=== PATIENT | female | born 1955 | race Caucasian/White ===

== ENCOUNTER → 2016-06-20 | Outpatient (CLI) | payer BC ==
--- NOTE | 2016-06-20 14:20 | MM ---
Reason for exam: additional evaluation requested from prior study. Last mammogram was performed 1 year ago. History: Patient is postmenopausal. Took hormonal contraceptives for 10 years. Physical Findings: Nurse did not find any significant physical abnormalities on exam. MG Diagnostic Mammo w CAD YOEL Bilateral CC and MLO view(s) were taken. Prior study comparison: June 08, 2015, bilateral MG screening mammo w CAD. May 15, 2014, mammogram, performed at . May 05, 2013, mammogram, performed at . There are scattered fibroglandular densities. Finding: There are typically benign calcifications in both breasts. There is no discrete abnormality. These results were verbally communicated with the patient and result sheet given to the patient on 06/20/16. ASSESSMENT: Benign, BI-RAD 2 RECOMMENDATION: Routine screening mammogram of both breasts in 1 year.
== END | disposition home or self-care (01) ==
LOC: RADMAMWWP 12:46
PROVIDERS: ATTEND Family Medicine
DX: N64.59 Other signs and symptoms in breast (principal)

== ENCOUNTER → 2017-10-21 | Outpatient (CLI) | payer BC ==
--- NOTE | 2017-10-22 08:10 | MM ---
Reason for exam: screening (asymptomatic). Last mammogram was performed 1 year and 4 months ago. History: Patient is postmenopausal. Took hormonal contraceptives for 10 years. Physical Findings: A clinical breast exam by your physician is recommended on an annual basis and results should be correlated with mammographic findings. MG Screening Mammo w CAD Bilateral CC and MLO view(s) were taken. Prior study comparison: June 20, 2016, bilateral MG diagnostic mammo w CAD YOEL. June 08, 2015, bilateral MG screening mammo w CAD. The breast tissue is heterogeneously dense. This may lower the sensitivity of mammography. No suspicious calcifications are seen. New nodule upper outer left breast 6.2cm from nipple. This finding is changed when compared with previous exams. ASSESSMENT: Incomplete: need additional imaging evaluation, BI-RAD 0 RECOMMENDATION: Special view mammogram of the left breast. If lesion persists on supplemental views, image directed ultrasound is recommended. [facility] will attempt to contact patient to return for supplemental views and ultrasound if indicated.
== END | disposition home or self-care (01) ==
LOC: RADMAMWWP 07:43
PROVIDERS: ATTEND Family Medicine
DX: Z12.31 Encounter for screening mammogram for malignant neoplasm of breast (principal)
CPT/HCPCS: 77067

== ENCOUNTER → 2017-10-29 | Outpatient (CLI) | payer BC ==
--- NOTE | 2017-10-29 11:40 | MM ---
Reason for exam: additional evaluation requested from abnormal screening. Last mammogram was performed less than 1 month ago. History: Patient is postmenopausal. Took hormonal contraceptives for 10 years. Physical Findings: Nurse did not find any significant physical abnormalities on exam. MG Work Up Mamm w CAD LT Spot compression CC, spot compression MLO, and LM view(s) were taken of the left breast. Prior study comparison: October 21, 2017, bilateral MG screening mammo w CAD. June 20, 2016, bilateral MG diagnostic mammo w CAD YOEL. There is no discrete abnormality. These results were verbally communicated with the patient and result sheet given to the patient on 10/29/17. ASSESSMENT: Probably benign, BI-RAD 3 RECOMMENDATION: Follow-up diagnostic mammogram of the left breast in 6 months.
== END | disposition home or self-care (01) ==
LOC: RADMAMWWP 10:11
PROVIDERS: ATTEND Family Medicine
DX: R92.8 Other abnormal and inconclusive findings on diagnostic imaging of breast (principal)
CPT/HCPCS: 77065

== ENCOUNTER 2018-02-18 07:34 | Day surgery (SDC) | payer BC ==
[2018-02-11 11:51] VITALS: BMI 29.9
[~2018-02-18 07:34] MED LIST: DEXAMETHASONE SOD PHOSPHATE 10 MG/ML 1 ML VIAL IV ONE; HYDROmorphone 0.5 MG/0.5 ML SYRINGE IVP PRN; LACTATED RINGERS 1,000 ML IV SCH; LIDOCAINE 1% 20 ML VIAL (10MG/ML) FOR IV START INTRADERMA PRN; ONDANSETRON 4 MG/2 ML VIAL IVP ONE; SCOPOLAMINE 1.5MG/72HR PATCH TRANSDERM ONE
[2018-02-18 08:04] VITALS: RESP 16; TEMP 98.2
[2018-02-18] MEDS ORDERED: LIDOCAINE 1% INJ 10MG/ML (20 ML MDV) ONE (09:32)
[2018-02-18] MEDS ORDERED: PROPOFOL 10 MG/ML 20 ML VIAL IV ONE (09:32)
--- NOTE | 2018-02-18 10:01 | P.PCN ---
Date of Procedure: 02/18/18 Procedure(s) Performed: BRIEF HISTORY: Patient is a 62-year-old, pleasant, white female, scheduled for an upper endoscopy as a part of evaluation of long-standing history of GERD of several years duration. She has been on Prilosec 20 mg twice daily and still remains symptomatic. She is hence scheduled for an upper endoscopy to rule out complicated reflux disease. PROCEDURE PERFORMED: Esophagogastroduodenoscopy with biopsy. PREOPERATIVE DIAGNOSIS: Long-standing history of GERD. IV sedation per anesthesia. PROCEDURE: After informed consent was obtained, the patient was brought into the endoscopy unit. IV sedation was administered by Anesthesia under continuous monitoring. Initially the Olympus GIF-140 video endoscope was inserted into the mouth. Esophagus intubated without any difficulty. It was gradually advanced into the stomach and duodenum and carefully examined. The bulb and the second part of the duodenum appeared normal. The scope at this time was withdrawn to the stomach, adequately insufflated with air, and upon careful examination, mucosa of the antrum, had mild gastritis and biopsies were done from this area. The body, cardia and the fundus appeared normal. The scope was then withdrawn into the esophagus. The GE junction was located at 39 cm from the incisors. Small hiatal hernia noted. The esophagus appeared normal. There were no erosions or ulcerations seen and the patient tolerated the procedure well. IMPRESSION: 1. Antral gastritis. 2. Small hiatal hernia but no evidence of esophagitis or Acuna's esophagus. RECOMMENDATIONS: The findings of this examination were discussed with the patient as well as a family. She was advised to follow with the biopsy results. She will continue with omeprazole 20 mg twice a day and follow antireflux measures.
[2018-02-18 10:18] VITALS: BP 136/83; PULSE 67
== END 2018-02-18 10:36 | disposition home or self-care (01) ==
LOC: ORWHC2ENDO 07:34
PROVIDERS: ATTEND Internal Medicine Gastroenterology
DX: K29.50 Unspecified chronic gastritis without bleeding (principal); K44.9 Diaphragmatic hernia without obstruction or gangrene; K21.9 Gastro-esophageal reflux disease without esophagitis; Z87.891 Personal history of nicotine dependence; Z79.899 Other long term (current) drug therapy
CPT/HCPCS: 88305; 43239; J2001; J2704

== ENCOUNTER → 2018-04-29 | Outpatient (CLI) | payer BC ==
--- NOTE | 2018-04-29 10:26 | MM ---
Reason for exam: follow-up at short interval from prior study. Last mammogram was performed 6 months ago. History: Patient is postmenopausal. Took hormonal contraceptives for 10 years. Physical Findings: Nurse did not find any significant physical abnormalities on exam. MG Diagnostic Mammo LT w CAD CC, MLO, and ML view(s) were taken of the left breast. Prior study comparison: October 29, 2017, left breast MG work up mamm w CAD LT. October 21, 2017, bilateral MG screening mammo w CAD. The breast tissue is heterogeneously dense. This may lower the sensitivity of mammography. Lower outer quadrant focal asymmetry is unchanged mammographically. These results were verbally communicated with the patient and result sheet given to the patient on 04/29/18. ASSESSMENT: Probably benign, BI-RAD 3 RECOMMENDATION: Follow-up diagnostic mammogram of both breasts in 6 months.
== END | disposition home or self-care (01) ==
LOC: RADMAMWWP 09:34
PROVIDERS: ATTEND Family Medicine
DX: R92.8 Other abnormal and inconclusive findings on diagnostic imaging of breast (principal)
CPT/HCPCS: 77065

== ENCOUNTER → 2018-08-04 | Outpatient (CLI) | payer BC ==
--- NOTE | 2018-08-04 12:35 | US ---
EXAMINATION TYPE: US thyroid st tissue head/neck DATE OF EXAM: 08/04/2018 COMPARISON: NONE CLINICAL HISTORY: R221 Swelling mass/lump neck. Edema/lump mid neck within area of thyroid GLAND SIZE: Right Lobe: 5.4 x 1.8 x 2.1 cm Overall Parenchyma: heterogenous Left Lobe: 5.7 x 2.5 x 2.9 cm Overall Parenchyma: heterogeneous Isthmus Thickness: 0.4 cm NODULES RIGHT: # of nodules measured on right: 0 LEFT: # of nodules measured on left: 1 1. 4.4 X 2.5 x 2.8 cm solid mixed nodule at the mid/lower pole with well-defined margins. This nod ule is wider than tall and shows intranodular vascularity. Prior size: no prior ISTHMUS: # of nodules measured in the isthmus: 0 Bilateral neck scanned, no evidence of lymphadenopathy. IMPRESSION: Solitary 4.4 cm suspicious left thyroid nodule meeting criteria for fine-needle aspiration. Therefore fine-needle aspiration is recommended. Overall the thyroid gland size is mildly enlarged.
== END | disposition home or self-care (01) ==
LOC: RADUSWWP 09:35
PROVIDERS: ATTEND Family Medicine
DX: E04.1 Nontoxic single thyroid nodule (principal); E04.9 Nontoxic goiter, unspecified
CPT/HCPCS: 76536

== ENCOUNTER 2018-09-10 09:23 | Day surgery (SDC) | payer BC ==
[2018-09-10 09:49] VITALS: RESP 16; TEMP 98
[2018-09-10] MEDS ORDERED: ALPRAZolam 0.5 MG TAB PO STA (09:54)
[2018-09-10 11:03] VITALS: BP 143/73; PULSE 68
--- NOTE | 2018-09-10 11:07 | US ---
ULTRASOUND GUIDED FNA THYROID BIOPSY: CLINICAL HISTORY: Left thyroid nodule FINDINGS: The procedure was explained to the patient. The risks, complications, benefits and alternatives were discussed and any questions were answered. Informed consent was obtained. Patient was placed supin e on the ultrasound table and prepped and draped in the usual sterile fashion. Utilizing a 25 gauge needle, five passes were made into the requested left thyroid nodule. Patient was stable throughout the procedure. Pathology is pending. All elements of maximal barrier technique were utilized. IMPRESSION: 1. Successful ultrasound guided FNA thyroid biopsy.
== END 2018-09-10 10:55 | disposition home or self-care (01) ==
LOC: RADPROMAIN 09:23
PROVIDERS: ATTEND Family Medicine
DX: E04.1 Nontoxic single thyroid nodule (principal)
CPT/HCPCS: 10005; 88173; 88305

== ENCOUNTER → 2018-10-08 | Outpatient (CLI) | payer BC ==
--- NOTE | 2018-10-08 11:54 | US ---
EXAMINATION TYPE: US kidneys/renal and bladder DATE OF EXAM: 10/08/2018 COMPARISON: NONE CLINICAL HISTORY: N13.30 HYDRONEPHROSIS. EXAM MEASUREMENTS: Right Kidney: 9.0 x 4.4 x 4.7 cm Left Kidney: 9.7 x 3.7 x 4.8 cm Patient of large body habitus, technically difficult and limited study. Right Kidney: Mild to moderate hydronephrosis. Left Kidney: No hydronephrosis or obvious masses seen, inferior pole somewhat obscured by bowel gas Bladder: wnl Bilateral Jets seen: Yes There is no evidence for hydronephrosis on the left. No nephrolithiasis is seen. No masses are iden tified. The urinary bladder is anechoic. Bilateral ureteral jets are seen. IMPRESSION: Mild to moderate hydronephrosis is seen on the left. CT could be performed to evaluate for distal obs truction.
== END | disposition home or self-care (01) ==
LOC: RADUSWWP 10:46
PROVIDERS: ATTEND Urology
DX: N13.30 Unspecified hydronephrosis (principal)
CPT/HCPCS: 76770

== ENCOUNTER → 2018-11-04 | Outpatient (CLI) | payer BC ==
--- NOTE | 2018-11-04 19:06 | CT ---
EXAMINATION TYPE: CT abdomen pelvis wo/w con DATE OF EXAM: 11/04/2018 HISTORY: Hydronephrosis. Abnormal ultrasound. CT DLP: 1799.8mGycm Automated Exposure Control for Dose Reduction was Utilized. CONTRAST: CT scan of the abdomen and pelvis is performed with oral and without and with IV Contrast, patient in jected with 100 mL of Isovue M300. COMPARISON: Renal ultrasound October 08, 2018 FINDINGS: LUNG BASES: No significant abnormality is appreciated. LIVER/GB: There is simple appearing 1.6 cm thin-walled cyst in the left hepatic lobe. PANCREAS: No significant abnormality is seen. SPLEEN: No significant abnormality is seen. ADRENALS: No significant abnormality is seen. KIDNEYS: Noncontrast images show no renal calculi bilaterally. Post contrast images show symmetric co rtical medullary uptake and excretion from both kidneys. There is moderate to severe right-sided hydr onephrosis which correlates with ultrasound. There is abrupt transition at UPJ to nondilated ureter. 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 Congenital etiology not excluded. Correlation with old outside CT or ultrasound would be beneficial. No intraluminal calculus in the bladder. BOWEL: For oral contrast reaches level of the distal transverse colon. No suspicious small or large b owel dilatation. Rare diverticula in the colon. No CT evidence for acute diverticulitis. A short segm ent of small bowel in the left mid abdomen shows persistent poor opacification and/or abnormal wall t hickening, focal enteritis at this level cannot be excluded. UTERUS/ADNEXA: Anteverted uterus. LYMPH NODES: No greater than 1cm abdominal or pelvic lymph nodes are appreciated. OSSEOUS STRUCTURES: Calcified disc L1-L2 level. Mild narrowing and spurring both hip joints. OTHER: No significant additional abnormality is seen. IMPRESSION: Moderate to severe right-sided hydronephrosis without hydroureter consistent with UPJ str icture or stenosis. Note is made that there is no delayed excretion from the right kidney (i.e. clayton l function).
== END | disposition home or self-care (01) ==
LOC: RADCTMAIN 15:48
PROVIDERS: ATTEND Urology
DX: N13.30 Unspecified hydronephrosis (principal)
CPT/HCPCS: 74178; Q9967

== ENCOUNTER → 2018-11-11 | Outpatient (CLI) | payer BC ==
--- NOTE | 2018-11-11 10:50 | CT ---
EXAMINATION TYPE: CT soft tissue neck w con DATE OF EXAM: 11/11/2018 COMPARISON: Correlation ultrasound 08/04/2018 (mentioned a 4.4 x 2.5 x 2.8 cm solid nodule at the mid to lower pole of the left lobe). HISTORY: 63-year-old female with left thyroid mass, difficulty swallowing TECHNIQUE: Contiguous axial scanning of the soft tissues of the neck performed with IV Contrast, jhon ent injected with 100 mL of Isovue 300. Coronal/sagittal reconstructions performed. CT DLP: 710 mGycm Automated exposure control for dose reduction was used. FINDINGS: Visualized intracranial structures, orbits and globes, paranasal sinuses, and mastoid air cells appea r clear. Nasopharynx appears clear. Punctate calcifications left palatine tonsil suggest sequela of prior infection. Oropharynx otherwise clear with mild hypertrophy of the bilateral palatine tonsils. Epiglottis and prevertebral soft tissues within normal limits. Glottic and subglottic structures as well as the tracheal column and visualized upper lungs are clear . Large, heterogeneously enhancing nodule within the left lobe of thyroid gland measures 4.0 x 2.5 x 2. 1 cm. This is very similar to slightly smaller as compared to measurements obtained on patient 019 ultrasound. Atrophic submandibular glands. Parotid glands are satisfactory, mildly atrophic. Nonspecific 3 mm round calcification along the midline floor of the mouth just above the level of the mylohyoid. No cervical lymphadenopathy. Scattered nonenlarged lymph nodes are present on both sides of the neck. Mild spondylotic change cervical spine. IMPRESSION: 1. KNOWN DOMINANT NODULE WITHIN THE LEFT LOBE OF THE THYROID GLAND CURRENTLY MEASURING 4.0 X 2.5 X 2. 1 CM (VERSUS MEASUREMENTS ON PRIOR ULTRASOUND OF 08/04/2018, 4.4 X 2.8 X 2.5 CM). 2. THIS DOES NOT HAVE ANY SIGNIFICANT MASS EFFECT ONTO THE TRACHEA OR CERVICAL ESOPHAGUS. 3. MILD BILATERAL PALATINE TONSILLAR HYPERTROPHY. 4. ATROPHIC SUBMANDIBULAR GLANDS. 5. A SMALL 3 MM ROUND CALCIFICATION ALONG THE FLOOR OF THE MOUTH JUST ABOVE THE LEVEL OF THE MYLOHYOI D IS NONSPECIFIC AND IS NOT IN THE EXPECTED LOCATION OF THE SUBMANDIBULAR DUCT OR SUBLINGUAL GLANDS.
== END ==
LOC: RADCTMAIN 08:34
PROVIDERS: ATTEND Otolaryngology
DX: E04.1 Nontoxic single thyroid nodule (principal); I89.8 Other specified noninfective disorders of lymphatic vessels and lymph nodes; R93.89 Abnormal findings on diagnostic imaging of other specified body structures
CPT/HCPCS: 70491; Q9967

== ENCOUNTER → 2018-12-16 | Outpatient (CLI) | payer BC ==
--- NOTE | 2018-12-16 11:23 | MM ---
Reason for exam: follow-up at short interval from prior study. Last mammogram was performed 8 months ago. History: Patient is postmenopausal. Took hormonal contraceptives for 10 years. Physical Findings: Nurse did not find any significant physical abnormalities on exam. MG Diagnostic Mammo w CAD YOEL Bilateral CC and MLO view(s) were taken. Prior study comparison: April 29, 2018, left breast MG diagnostic mammo LT w CAD. October 29, 2017, left breast MG work up mamm w CAD LT. The breast tissue is heterogeneously dense. This may lower the sensitivity of mammography. Small nodular density unchanged since 2014. No significant new findings when compared with previous films. These results were verbally communicated with the patient and result sheet given to the patient on 12/16/18. ASSESSMENT: Benign, BI-RAD 2 RECOMMENDATION: Routine screening mammogram of both breasts in 1 year.
== END | disposition home or self-care (01) ==
LOC: RADMAMWWP 10:48
PROVIDERS: ATTEND Family Medicine
DX: R92.8 Other abnormal and inconclusive findings on diagnostic imaging of breast (principal)
CPT/HCPCS: 77066

== ENCOUNTER 2019-02-03 08:26 | Observation (INO) | payer BC ==
[2019-01-31 13:43] VITALS: BMI 31.6
[~2019-02-03 08:26] MED LIST changes: +HEPARIN SODIUM,PORCINE 5,000 UNIT/ML 1 ML VIAL SQ ONE; -LACTATED RINGERS 1,000 ML IV SCH; -LIDOCAINE 1% 20 ML VIAL (10MG/ML) FOR IV START INTRADERMA PRN; +MIDAZOLAM 2 MG/2 ML VIAL IV PRN; +Pre Op ABX Message 1 EACH MISC MISCELLANE ONE
[2019-02-03] MEDS: LACTATED RINGERS 1,000 ML IV SCH ×2 (09:02→12:09)
[2019-02-03] MEDS ORDERED: LIDOCAINE 1% 20 ML VIAL (10MG/ML) FOR IV START INTRADERMA ONE (09:03)
--- NOTE | 2019-02-03 09:35 | P.GSHP ---
History of Present Illness H&P Date: 02/03/19 Chief Complaint: Left thyroid nodule This a 63-year-old female who presents today for left thyroidectomy. Patient has an enlarging left thyroid nodule measuring approximately 4 cm diameter. Previous nodule biopsy which shows evidence of follicular nodule. Patient aware the risks of surgery including parathyroid gland injury and recurrent laryngeal nerve injury and vocal hoarseness and vocal cord paralysis Past Medical History Past Medical History: GERD/Reflux, Hyperlipidemia Additional Past Medical History / Comment(s): Thyroid nodule. History of Any Multi-Drug Resistant Organisms: None Reported Past Surgical History: Section, Orthopedic Surgery Additional Past Surgical History / Comment(s): RIGHT KNEE SCOPE X2, EGD, COLONOSCOPY, bilateral cataract removal. Past Anesthesia/Blood Transfusion Reactions: Motion Sickness Past Psychological History: No Psychological Hx Reported Smoking Status: Former smoker Past Alcohol Use History: None Reported Additional Past Alcohol Use History / Comment(s): SMOKED 20 YEARS, 1 PPD, QUIT 1997. Past Drug Use History: None Reported - Past Family History Father Family Medical History: Cancer Additional Family Medical History / Comment(s): STOMACH CA. Mother Family Medical History: Cancer Additional Family Medical History / Comment(s): SKIN CA. Sister(s) Family Medical History: Cancer Additional Family Medical History / Comment(s): ENDOMETRIAL CA. Medications and Allergies Home Medications Medication Instructions Recorded Confirmed Type Atorvastatin [Lipitor] 40 mg PO DAILY 02/11/18 02/03/19 History Cyanocobalamin (Vitamin B-12) 1,000 mcg PO DAILY 02/11/18 02/03/19 History [Vitamin B-12] Psyllium Husk [Metamucil] 0.4 gm PO DAILY 02/11/18 02/03/19 History Esomeprazole Magnesium [NexIUM] 40 mg PO BID 01/31/19 02/03/19 History Allergies Allergy/AdvReac Type Severity Reaction Status Date / Time NSAIDS (Non-Steroidal AdvReac Nausea & Verified 01/31/19 13:47 Anti-Inflamma Vomiting Surgical - Exam Vital Signs Temp Pulse Resp BP Pulse Ox 96.2 F L 75 16 159/79 98 02/03/19 08:46 02/03/19 08:46 02/03/19 08:46 02/03/19 08:46 02/03/19 08:46 - General well developed, well nourished, no distress - Eyes PERRL - ENT normal pinna - Neck Enlarged left thyroid gland no masses - Respiratory normal expansion - Cardiovascular Rhythm: regular - Abdomen Abdomen: soft, non tender Results - Labs Diabetes panel 02/03/19 Range/Units 09:05 Calcium 9.0 (8.4-10.2) mg/dL Calcium panel 02/03/19 Range/Units 09:05 Calcium 9.0 (8.4-10.2) mg/dL Pituitary panel 02/03/19 Range/Units 09:05 Calcium 9.0 (8.4-10.2) mg/dL Adrenal panel 02/03/19 Range/Units 09:05 Calcium 9.0 (8.4-10.2) mg/dL Assessment and Plan Assessment: Left thyroid nodule. We'll perform left thyroidectomy
[2019-02-03] MEDS ORDERED: MIDAZOLAM 2 MG/2 ML VIAL ONE (09:53)
[2019-02-03] MEDS ORDERED: fentaNYL (PF) 50 MCG/ML 2 ML AMP ONE (09:53)
[2019-02-03] MEDS ORDERED: SUCCINYLCHOLINE CHLORIDE 100 MG/5 ML SYR IV ONE (09:53)
[2019-02-03] MEDS ORDERED: PROPOFOL 10 MG/ML 20 ML VIAL IV ONE (09:53)
[2019-02-03] MEDS ORDERED: ceFAZolin 1,000 MG VIAL ONE (09:53)
[2019-02-03] MEDS ORDERED: LIDOCAINE 1% INJ 10MG/ML (20 ML MDV) ONE (09:53)
[2019-02-03] MEDS ORDERED: SODIUM CHLORIDE 0.9% 100 ML with ceFAZolin 2,000 MG IV ONE ×2 (10:37)
[2019-02-03] MEDS ORDERED: BUPIVACAIN-EPI 0.25%-1:200,000 30 ML VIAL SQ ONE (10:55)
[2019-02-03] MEDS ORDERED: HYDROcodone/APAP 5-325MG 1 EACH TAB PO PRN (11:38)
[2019-02-03] MEDS ORDERED: HYDROmorphone 0.5 MG/0.5 ML SYRINGE IVP PRN (11:38)
[2019-02-03] MEDS ORDERED: ONDANSETRON 4 MG/2 ML VIAL IVP PRN (11:38)
[2019-02-03] MEDS ORDERED: NALOXONE 0.4 MG/ML 1 ML VIAL IV PRN (11:38)
[2019-02-03] MEDS ORDERED: LACTATED RINGERS 1,000 ML IV ONE (11:38)
--- NOTE | 2019-02-03 11:55 | P.OP ---
Date of Procedure: 02/03/19 Preoperative Diagnosis: Left thyroid nodule Postoperative Diagnosis: Left thyroid nodule Procedure(s) Performed: Left thyroidectomy Anesthesia: PANCHITO Surgeon: Bhupendra Wiggins Pathology: other (Left thyroid gland) Condition: stable Disposition: PACU Description of Procedure: The patient's placed on the operative table in supine position. Her neck was prepped and draped usual sterile fashion. A standard Jenn incision was made using left cautery the subcutaneous tissues and platysma was divided. The p latysma flaps were elevated. The strap muscles were divided midline. Using gentle traction the left thyroid gland was exposed. The gland was rotated medially into the wound. The superior thyroid vessels were divided with 2-0 silk ties. The inferior thyroid vessels were divided with 2-0 silk ties. The thyroid gland was then further rotated medially. Using meticulous dissection the middle thyroid vein was divided and ligated with 3-0 silk ties. The recurrent laryngeal nerve was identified and preserved. The thyroid gland was then taken off the trachea using meticulous dissection and tying several small veins with 3-0 GI silk sutures. The isthmus was then divided using the Harmonic scissors. There was no evidence of any bleeding. The strap muscles then reapproximated midline using 2-0 Vicryl suture. The platysma was reapproximated using 3-0 Vicryl suture. Skin was closed interrupted 3-0 Monocryl suture. Dermabond was applied. Patient top she will was sent to recovery in stable condition.
--- NOTE | 2019-02-03 13:27 | P.CONS ---
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 Patient will be monitored for hypocalcemia. Patient denied any fever chills nausea vomiting abdominal pain. Patient doesn't have a Lee catheter patient is just coming out of anesthesia because of which I did not obtain much of the history. Review of Systems REVIEW OF SYSTEMS: All other systems are negative except those mentioned above Past Medical History Past Medical History: GERD/Reflux, Hyperlipidemia Additional Past Medical History / Comment(s): Thyroid nodule. History of Any Multi-Drug Resistant Organisms: None Reported Past Surgical History: Section, Orthopedic Surgery Additional Past Surgical History / Comment(s): RIGHT KNEE SCOPE X2, EGD, COLONOSCOPY, bilateral cataract removal. Past Anesthesia/Blood Transfusion Reactions: Motion Sickness Past Psychological History: No Psychological Hx Reported Smoking Status: Former smoker Past Alcohol Use History: None Reported Additional Past Alcohol Use History / Comment(s): SMOKED 20 YEARS, 1 PPD, QUIT 1997. Past Drug Use History: None Reported - Past Family History Father Family Medical History: Cancer Additional Family Medical History / Comment(s): STOMACH CA. Mother Family Medical History: Cancer Additional Family Medical History / Comment(s): SKIN CA. Sister(s) Family Medical History: Cancer Additional Family Medical History / Comment(s): ENDOMETRIAL CA. Medications and Allergies Home Medications Medication Instructions Recorded Confirmed Type Atorvastatin [Lipitor] 40 mg PO DAILY 02/11/18 02/03/19 History Cyanocobalamin (Vitamin B-12) 1,000 mcg PO DAILY 02/11/18 02/03/19 History [Vitamin B-12] Psyllium Husk [Metamucil] 0.4 gm PO DAILY 02/11/18 02/03/19 History Esomeprazole Magnesium [NexIUM] 40 mg PO BID 01/31/19 02/03/19 History Allergies Allergy/AdvReac Type Severity Reaction Status Date / Time NSAIDS (Non-Steroidal AdvReac Nausea & Verified 01/31/19 13:47 Anti-Inflamma Vomiting Physical Exam Vitals: Vital Signs Temp Pulse Pulse Resp BP BP Pulse Ox 02/03/19 12:40 97.6 F 66 19 188/88 98 02/03/19 12:00 63 16 148/73 96 02/03/19 11:45 63 16 138/67 100 02/03/19 11:30 64 16 134/67 100 02/03/19 11:15 76 16 145/80 02/03/19 11:07 97.4 F L 79 12 145/82 100 02/03/19 08:46 96.2 F L 75 16 159/79 98 Intake and Output 02/02/19 02/03/19 02/03/19 22:59 06:59 14:59 Intake Total 1200 Output Total 10 Balance 1190 Intake: IV 1200 Output: Estimated Blood Loss 10 Other: Weight 87.09 kg PHYSICAL EXAMINATION: GENERAL: The patient is alert and oriented x3, not in any acute distress. Well developed, well nourished. HEENT: Pupils are round and equally reacting to light. EOMI. No scleral icterus. No conjunctival pallor. Normocephalic, atraumatic. No pharyngeal erythema. Postsurgical packed IOVASCULAR: S1 and S2 present. No murmurs, rubs, or gallops. PULMONARY: Chest is clear to auscultation, no wheezing or crackles. ABDOMEN: Soft, nontender, nondistended, normoactive bowel sounds. No palpable organomegaly. MUSCULOSKELETAL: No joint swelling or deformity. EXTREMITIES: No cyanosis, clubbing, or pedal edema. NEUROLOGICAL: Gross neurological examination did not reveal any focal deficits. SKIN: No rashes. Assessment and Plan Plan: -Total thyroidectomy postoperative day 0 patient will be monitored for hypocalcemia. And management and DVT prophylaxis per primary service -Hyperlipidemia resume on statin -Gastroesophageal reflux disease. Patient will be resumed on proton pump inhibitor and
[2019-02-03] MEDS: KETOROLAC 30 MG/ML 1 ML VIAL IVP SCH ×2 (14:09→17:06)
[2019-02-03] MEDS: PANTOPRAZOLE 40 MG TABLET PO SCH (17:06)
[2019-02-03] MEDS ORDERED: TRIMETHOBENZAMIDE 300 MG CAP PO PRN (18:06)
[2019-02-03 19:29] VITALS: RESP 18
[2019-02-03 23:51] VITALS: TEMP 98.3
[2019-02-04] MEDS: KETOROLAC 30 MG/ML 1 ML VIAL IVP SCH ×2 (00:16→05:25)
[2019-02-04 07:58] LABS: Albumin 3.3 g/dL (3.5-5.0)
[2019-02-04 08:00] VITALS: BP 120/77; PULSE 75
[2019-02-04] MEDS: PANTOPRAZOLE 40 MG TABLET PO SCH (08:32)
[2019-02-04] MEDS ORDERED: PSYLLIUM HUSK 100% 6 GM PACKET PO SCH (09:00)
[2019-02-04] MEDS ORDERED: ENOXAPARIN 40 MG/0.4 ML SYRINGE SQ SCH (09:00)
[2019-02-04] MEDS ORDERED: ATORVASTATIN 40 MG TAB PO SCH (09:00)
--- NOTE | 2019-02-04 12:47 | P.DS ---
Providers Date of admission: 02/04/19 00:19 Expected date of discharge: 02/04/19 Attending physician: Bhupendra Wiggins Consults: 02/03/19 11:38 Consult Physician Routine Consulting Provider: Maia Barker Consult Reason/Comments: Medical management Do you want consulting provider notified?: Yes Primary care physician: Delores Spann Hospital Course: 63-year-old female who underwent left thyroidectomy secondary to left thyroid nodule. Patient doing well postoperatively without any immediate complications. Vital signs are stable. She is stable for discharge home today. Please see EMR for further hospital course details. Discharge diagnosis 1. Left thyroid nodule, status post left thyroidectomy Nurse practitioner note has been reviewed by physician. Signing provider agrees with the documented findings, assessment, and plan of care. Plan - Discharge Summary Discharge Rx Participant: Yes New Discharge Prescriptions: New Hydrocodone/Acetaminophen [[place] 5-325] 1 tab PO Q6HR PRN 3 Days #12 tab PRN Reason: Pain Continue Psyllium Husk [Metamucil] 0.4 gm PO DAILY Atorvastatin [Lipitor] 40 mg PO DAILY Cyanocobalamin (Vitamin B-12) [Vitamin B-12] 1,000 mcg PO DAILY Esomeprazole Magnesium [NexIUM] 40 mg PO BID Discharge Medication List Atorvastatin [Lipitor] 40 mg PO DAILY 02/11/18 [History] Cyanocobalamin (Vitamin B-12) [Vitamin B-12] 1,000 mcg PO DAILY 02/11/18 [History] Psyllium Husk [Metamucil] 0.4 gm PO DAILY 02/11/18 [History] Esomeprazole Magnesium [NexIUM] 40 mg PO BID 01/31/19 [History] Hydrocodone/Acetaminophen [[place] 5-325] 1 tab PO Q6HR PRN 3 Days #12 tab 02/04/19 [Rx] Follow up Appointment(s)/Referral(s): Delores Spann DO [Primary Care Provider] - 1 Week Bhupendra Wiggins MD [STAFF PHYSICIAN] - 02/14/19 10:30 am Activity/Diet/Wound Care/Special Instructions: No driving while taking [place] No lifting over 10 pounds You may shower. No soaking or tub baths Very light activity until you are reevaluated at your follow up appointment with your surgeon
--- NOTE | 2019-02-04 13:46 | P.PN ---
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 Patient will be monitored for hypocalcemia. Patient denied any fever chills nausea vomiting abdominal pain. Patient doesn't have a Lee catheter patient is just coming out of anesthesia because of which I did not obtain much of the history. 02/04/2019 Patient is sitting up in bed in no acute distress with no acute overnight issues. Surgical dressing of the neck status post total thyroidectomy is dry and intact with no drainage noted. Currently patient states that she feels well and is denying any symptoms of difficulty swallowing, difficulty eating, or any issues in her breathing. Patient states that she would like to go home today. Patient's calcium today is 9.0. Patient is eating well and tolerating diet with no reports of difficult swallowing, nausea, or vomiting. Patient is up to the bathroom on her own with no difficulties urinating. Patient denies any dysuria or retention. Objective - Vital Signs Vital signs: Vital Signs Temp 98.3 F 02/04/19 07:59 Pulse 75 02/04/19 07:59 Resp 18 02/04/19 07:59 BP 120/77 02/04/19 07:59 Pulse Ox 99 02/04/19 07:59 Intake & Output 02/03/19 02/04/19 02/04/19 18:59 06:59 18:59 Intake Total 1200 Output Total 10 Balance 1190 Weight 87.09 kg Intake: IV 1200 Output: Estimated Blood Loss 10 Other: Voiding Method Toilet Toilet Toilet # Voids 1 - Exam GENERAL: The patient is alert and oriented x3, not in any acute distress. Well developed, well nourished. HEENT: Pupils are round and equally reacting to light. EOMI. No scleral icterus. No conjunctival pallor. Normocephalic, atraumatic. No pharyngeal erythema. Postsurgical dressing is dry and intact with no increased redness or swelling noted to the anterior neck CardIOVASCULAR: S1 and S2 present. No murmurs, rubs, or gallops. PULMONARY: Chest is clear to auscultation, no wheezing or crackles. ABDOMEN: Soft, nontender, nondistended, normoactive bowel sounds. No palpable organomegaly. MUSCULOSKELETAL: No joint swelling or deformity. EXTREMITIES: No cyanosis, clubbing, or pedal edema. NEUROLOGICAL: Gross neurological examination did not reveal any focal deficits. SKIN: No rashes. - Labs Labs: Abnormal Lab Results - Last 24 Hours (Table) 02/04/19 Range/Units 07:28 Albumin 3.3 L (3.5-5.0) g/dL Assessment and Plan Assessment: -Total thyroidectomy postoperative day 1 patient will be monitored for hypocalcemia. Calcium this morning again is 9.0 and stable. And management and DVT prophylaxis per primary service -Hyperlipidemia resumed on statin -Gastroesophageal reflux disease. Patient was resumed on proton pump inhibitor Plan: Recommend continue current medications, management, and symptomatic treatment. Patient's surgical dressing of her anterior neck is dry and intact. Surgical cause has been removed. Patient will follow-up with Dr. Wiggins along with her primary care provider in the outpatient setting. Patient is anticipating discharge today. Further recommendations to follow. Willl continue to follow along dosely. <Sheet,Colton E - Last Filed: 02/13/19 23:53> Subjective Principal diagnosis: I have discussed the plan and I have reviewed the note with MAGDALENA Jenkins and I agree with it except what is mentioned below Pt is seen and examined by me at bed side pt is asymptomatic today, pt calcium correct for albumin level is WNL pt is instructed to f/u with her pcp in one week and she agrees pt is medically stable Objective - Vital Signs Vital signs: Vital Signs Temp 98.3 F 02/04/19 07:59 Pulse 75 02/04/19 07:59 Resp 18 02/04/19 07:59 BP 120/77 02/04/19 07:59 Pulse Ox 99 02/04/19 07:59
== END 2019-02-04 13:31 | disposition home or self-care (01) ==
LOC: OR 08:26 → 1SOBS 11:07 → OR 02-04 00:18 → 1SOBS 02-04 00:19
PROVIDERS: ADMIT Surgery; ATTEND Surgery
DX: D34 Benign neoplasm of thyroid gland (principal); E78.00 Pure hypercholesterolemia, unspecified; E78.5 Hyperlipidemia, unspecified; K21.9 Gastro-esophageal reflux disease without esophagitis; Z79.899 Other long term (current) drug therapy; Z80.0 Family history of malignant neoplasm of digestive organs; Z80.49 Family history of malignant neoplasm of other genital organs; Z87.891 Personal history of nicotine dependence; Z98.42 Cataract extraction status, left eye; Z98.41 Cataract extraction status, right eye; Z88.6 Allergy status to analgesic agent
CPT/HCPCS: 82040; 82310 ×2; 88307; 60220; G0378; J2250; J1644; J1100; J2405; J0690; J2001; J1650; J3010; J1885 ×2; J0330; J2704; J1170

== ENCOUNTER 2020-04-27 10:48 | Day surgery (SDC) | payer BC ==
[2020-04-24 10:57] VITALS: BMI 33.3
[~2020-04-27 10:48] MED LIST changes: -DEXAMETHASONE SOD PHOSPHATE 10 MG/ML 1 ML VIAL IV ONE; -HEPARIN SODIUM,PORCINE 5,000 UNIT/ML 1 ML VIAL SQ ONE; -HYDROmorphone 0.5 MG/0.5 ML SYRINGE IVP PRN; +LACTATED RINGERS 1,000 ML IV SCH; -MIDAZOLAM 2 MG/2 ML VIAL IV PRN; -ONDANSETRON 4 MG/2 ML VIAL IVP ONE; -Pre Op ABX Message 1 EACH MISC MISCELLANE ONE; -SCOPOLAMINE 1.5MG/72HR PATCH TRANSDERM ONE
[2020-04-27 11:46] VITALS: RESP 16; TEMP 98.2
[2020-04-27] MEDS ORDERED: LIDOCAINE 1% (10MG/ML) FOR IV START INTRADERMA ONE (11:48)
[2020-04-27] MEDS ORDERED: PROPOFOL 10 MG/ML 20 ML VIAL IV ONE (12:26)
[2020-04-27] MEDS ORDERED: LIDOCAINE 1% INJ 10MG/ML (20 ML MDV) ONE (12:26)
--- NOTE | 2020-04-27 12:44 | P.PCN ---
Date of Procedure: 04/27/20 Procedure(s) Performed: BRIEF HISTORY: Patient is a 65-year-old, pleasant, white female scheduled for an upper endoscopy as a part of evaluation long-standing history of GERD. Lately her symptoms have been progressively getting worse. On Prilosec 20 mg twice daily with no help. She is hence scheduled for an upper endoscopy to rule out complicated reflux PROCEDURE PERFORMED: Esophagogastroduodenoscopy. with biopsy PREOPERATIVE DIAGNOSIS: GERD refractory to PPI therapy IV sedation per anesthesia. PROCEDURE: After informed consent was obtained, the patient was brought into the endoscopy unit. IV sedation was administered by Anesthesia under continuous monitoring. Initially the Olympus GIF-140 video endoscope was inserted into the mouth. Esophagus intubated without any difficulty. It was gradually advanced into the stomach and duodenum and carefully examined. The bulb and the second part of the duodenum appeared normal. The scope at this time was withdrawn to the stomach, adequately insufflated with air, and upon careful examination, mucosa of the antrum, body, cardia and the fundus appeared normal. The scope was then withdrawn into the esophagus. The GE junction was located at 39 cm from the incisors. The esophagus appeared normal. There were no erosions or ulcerations seen, biopsies were done intermittent mid and distal esophagus and the patient tolerated the procedure well. IMPRESSION: 1. Normal-appearing esophagus with no evidence of esophagitis, Acuna's esophagus or esophageal stricture RECOMMENDATIONS: The findings of this examination were discussed with the patient as well as a family. She was advised to follow with the biopsy results.. she was advised to change omeprazole to 20 mg twice daily half hour before breakfast and dinnertime and follow antireflux measures. She can use [id number] Pepcid at bedtime. She'll be seen in office in 3-4 weeks.
[2020-04-27 12:59] VITALS: BP 131/69; PULSE 71
== END 2020-04-27 13:22 | disposition home or self-care (01) ==
LOC: ORWHC2ENDO 10:48
PROVIDERS: ATTEND Internal Medicine Gastroenterology
DX: K21.9 Gastro-esophageal reflux disease without esophagitis (principal); E78.5 Hyperlipidemia, unspecified; Z79.899 Other long term (current) drug therapy; Z88.6 Allergy status to analgesic agent
CPT/HCPCS: 88305; 43239; J2001; J2704

== ENCOUNTER → 2020-06-01 | Outpatient (CLI) | payer BC ==
--- NOTE | 2020-06-04 11:42 | MM ---
Reason for exam: screening (asymptomatic). Last mammogram was performed 1 year and 6 months ago. History: Patient is postmenopausal. Took hormonal contraceptives for 10 years. Physical Findings: A clinical breast exam by your physician is recommended on an annual basis and results should be correlated with mammographic findings. MG Screening Mammo w CAD Bilateral CC and MLO view(s) were taken. Prior study comparison: December 16, 2018, bilateral MG diagnostic mammo w CAD [facility]. April 29, 2018, left breast MG diagnostic mammo LT w CAD. There are scattered fibroglandular densities. There are benign appearing round calcifications bilaterally. There is no discrete abnormality. ASSESSMENT: Benign, BI-RAD 2 RECOMMENDATION: Routine screening mammogram of both breasts in 1 year.
== END | disposition home or self-care (01) ==
LOC: RADMAMWWP 10:40
PROVIDERS: ATTEND Family Medicine
DX: Z12.31 Encounter for screening mammogram for malignant neoplasm of breast (principal); Z78.0 Asymptomatic menopausal state
CPT/HCPCS: 77067

== ENCOUNTER → 2020-07-24 | Outpatient (CLI) | payer BC ==
--- NOTE | 2020-07-24 16:37 | US ---
EXAMINATION TYPE: US kidneys/renal and bladder DATE OF EXAM: 07/24/2020 COMPARISON: 10/08/2018, CT 11/04/2018 CLINICAL HISTORY: N18.3 Chronic Kidney Disease Stage 3. No pain. Hx right hydronephrosis. EXAM MEASUREMENTS: Right Kidney: 9.0 x 3.8 x 4.2 cm Left Kidney: 9.9 x 3.9 x 4.0 cm Right Kidney: Mild/moderate hydronephrosis. No definite renal calculi. Left Kidney: No hydronephrosis or renal calculi seen Bladder: Distended, anechoic Bilateral Jets not seen There is a mild to moderate right hydronephrosis. No definite evidence of obstructing or other right renal calculi. No left renal calculi. No ureteral jets are seen. IMPRESSION: 1. [id number] right hydronephrosis. No definite renal calculi. 2. No left hydronephrosis. 3. The ureteral jets are not visualized.
== END | disposition home or self-care (01) ==
LOC: RADUSWWP 14:53
PROVIDERS: ATTEND Internal Medicine Nephrology
DX: N13.30 Unspecified hydronephrosis (principal); N18.31 Chronic kidney disease, stage 3a
CPT/HCPCS: 76770

== ENCOUNTER → 2021-02-11 | Outpatient (CLI) | payer BC, OTHER ==
--- NOTE | 2021-02-11 08:58 | MR ---
EXAMINATION TYPE: MR lumbar spine wo con DATE OF EXAM: 02/11/2021 COMPARISON: CT abdomen and pelvis November 04, 2018 HISTORY: Radiculopathy, pain TECHNIQUE: Multiplanar, multisequence imaging of the lumbar spine is performed without IV contrast. FINDINGS: Sagittal images of the lumbar spine show vertebral body heights and alignment to appear sat isfactory. Multilevel disc desiccation but this space heights are fairly well maintained.. The conus medullaris is normal in position and signal ending superior L1 level. Mild multilevel anterior spurr ing. The bone marrow signal intensity is within normal limits. Axial images show T12-L1 level to have [id number] facet degenerative change of the ligament fla vum hypertrophy effacing left posterolateral thecal sac axial image 28. Axial images at L1-L2 level are within normal limits. Axial images at L2-L3 level mild broad disc bulge and facet degenerative changes. Spinal canal is pre served. The bilateral neural foramina are patent. Axial images at L3-L4 level show moderate facet degenerative changes and ligamentum flavum hypertroph y with increased posterior epidural fat causing AP canal diameter narrowing. Mild to moderate broad d isc bulge without significant anterior spinal canal effacement. Patent bilateral neural foramina. Axial images at the L4-L5 level show mild/moderate facet degenerative changes and ligamentum flavum h ypertrophy with mild to moderate broad disc bulge mildly effacing the anterior thecal sac, there are patent bilateral neural foramina seen. Axial images at the L5-S1 level shows moderate facet arthropathy and ligament flavum hypertrophy. Spi nal canal is preserved as there is increased epidural fat. Patent bilateral neural foramina. Paraspinal muscle bulk is maintained. IMPRESSION: Mild to moderate multilevel degenerative in the lumbar spine as detailed above.
== END | disposition home or self-care (01) ==
LOC: RADMRIMAIN 08:06
PROVIDERS: ATTEND Family Medicine
DX: M54.16 Radiculopathy, lumbar region (principal)
CPT/HCPCS: 72148

== ENCOUNTER → 2021-06-24 | Outpatient (CLI) | payer OTHER ==
--- NOTE | 2021-06-25 12:03 | MM ---
Reason for exam: screening (asymptomatic). Last mammogram was performed 1 year and 1 month ago. History: Patient is postmenopausal. Took hormonal contraceptives for 10 years. Physical Findings: A clinical breast exam by your physician is recommended on an annual basis and results should be correlated with mammographic findings. MG Screening Mammo w CAD Bilateral CC and MLO view(s) were taken. Prior study comparison: June 01, 2020, bilateral MG screening mammo w CAD. December 16, 2018, bilateral MG diagnostic mammo w CAD [facility]. October 21, 2017, bilateral MG screening mammo w CAD. There are scattered fibroglandular densities. There is no discrete abnormality. ASSESSMENT: Negative, BI-RAD 1 RECOMMENDATION: Routine screening mammogram of both breasts in 1 year.
== END | disposition home or self-care (01) ==
LOC: RADBDWWP 15:54
PROVIDERS: ATTEND Family Medicine
DX: Z12.31 Encounter for screening mammogram for malignant neoplasm of breast (principal); Z13.820 Encounter for screening for osteoporosis
CPT/HCPCS: 77067

== ENCOUNTER 2021-07-03 08:07 | Day surgery (SDC) | payer BC, OTHER ==
[2021-07-02 10:09] VITALS: BMI 33.3
[~2021-07-03 08:07] MED LIST changes: +LIDOCAINE 1% (10MG/ML) FOR IV START INTRADERMA PRN
[2021-07-03 08:29] VITALS: TEMP 96.7
[2021-07-03] MEDS ORDERED: LIDOCAINE 2% INJ 20 MG/ML (2 ML VIAL) ONE (09:01)
[2021-07-03] MEDS ORDERED: PROPOFOL 10 MG/ML 20 ML VIAL IV ONE (09:01)
--- NOTE | 2021-07-03 09:20 | P.PCN ---
Date of Procedure: 07/03/21 Procedure(s) Performed: BRIEF HISTORY: Patient is a 66.-year-old pleasant white female scheduled for an elective colonoscopy as a part of screening for colorectal neoplasia. PROCEDURE PERFORMED: Colonoscopy. PREOPERATIVE DIAGNOSIS: Screening for colon cancer. IV sedation per Anesthesia. PROCEDURE: After informed consent was obtained, the patient, was brought into the endoscopy unit. IV sedation was administered by Anesthesia under continuous monitoring. Digital rectal examination was normal. Initially the Olympus CF-160 flexible video colonoscope was then inserted in the rectum, gradually advanced into the cecum without any difficulty. Careful examination was performed as the scope was gradually being withdrawn. Ileocecal valve and the appendiceal orifice were visualized and appeared normal. Prep was excellent. Mucosa of the cecum, ascending colon, transverse colon, descending colon, sigmoid colon, and rectum appeared normal. Scattered sigmoid diverticulosis Retroflexion was performed in the rectum and no lesions were seen. The patient tolerated the procedure well. IMPRESSION: Normal-appearing colon from rectum to cecum with no evidence of colorectal neoplasia. Scattered sigmoid diverticulosis. RECOMMENDATIONS: Findings of this examination were discussed with the patient as well as her family. She was advised to have a repeat screening colonoscopy in 10 years. .
[2021-07-03 10:00] VITALS: BP 142/86; PULSE 76; RESP 14
== END 2021-07-03 10:21 | disposition home or self-care (01) ==
LOC: ORWHC2ENDO 08:07
PROVIDERS: ATTEND Internal Medicine Gastroenterology
DX: Z12.11 Encounter for screening for malignant neoplasm of colon (principal); K57.30 Diverticulosis of large intestine without perforation or abscess without bleeding
CPT/HCPCS: 45378; J2704; J2001